=== PATIENT | female | born 1985 | race Caucasian/White ===

== ENCOUNTER → 2016-07-26 | Outpatient (CLI) | payer OTHER ==
[~2016-07-26] MED LIST: GLC/500 PO; LEVO50TA6 PO; METH0.2T39 PO; MTR600X PO; PRENTAB26 PO
[2016-07-26 12:15] LABS: BASO % 0.3 %; BASO ABS # 0.02 K/uL (0-0.2); COMPLETE YES; EOS % 0.7 %; HEMATOCRIT 36.7 % (37-47); IG% 0.3 %; LYMPH % 32.8 %; LYMPH ABS # 2.44 K/uL (1.2-3.4); MEAN CELL VOLUME 83.4 fL (80-100); MEAN CORPUSCULAR HEMOGLOBIN 30.2 pg (25-34); MEAN CORPUSCULAR HGB CONC 36.2 g/dl (32-36); MEAN PLATELET VOLUME 9.5 fL (7.4-10.4); MONO % 5.5 %; NEUT % 60.4 %; PLATELET COUNT 294 K/uL (130-400); WHITE BLOOD COUNT 7.43 K/uL (4.8-10.8)
== END | disposition home or self-care (01) ==
LOC: C.LAB 11:27
PROVIDERS: ATTEND Obstetrics & Gynecology
DX: Z01.812 Encounter for preprocedural laboratory examination (principal)

== ENCOUNTER 2016-07-31 07:45 | Day surgery (SDC) | payer OTHER ==
--- NOTE | 2016-07-26 16:29 | HISTORY & PHYSICAL EXAMINATION ---
DATE OF ADMISSION: 07/31/2016 NOTE: She is having surgery with me on July 31 in the main OR. CHIEF COMPLAINT: Missed . HISTORY OF PRESENT ILLNESS: The patient is a 31-year-old female 2, para 0, last menstrual period 04/14/2016 approximately 10 weeks 5 days who had an ultrasound today revealing a demise. No heartbeat was noted. Intrauterine was noted. PAST MEDICAL HISTORY: Positive for PCOS, hypothyroid and heterozygous for MTHFR mutation and endometriosis. PAST SURGICAL HISTORY: Positive for a laparoscopy in 2016 and dental surgery. ALLERGIES: No known allergies. MEDICATIONS: vitamins and Zofran and Levoxyl 50 mcg p.o. daily. The patient is A negative and she will need RhoGAM. REVIEW OF SYSTEMS: Negative. FAMILY HISTORY: Negative. SOCIAL HISTORY: Denies smoking, alcohol or drug use. FAMILY HISTORY: Noncontributory. PHYSICAL EXAMINATION: HEENT: Within normal limits. VITAL SIGNS: Blood pressure 110/66, her weight is 137 pounds. LUNGS: Clear to auscultation. COR: Regular rate and rhythm. ABDOMEN: Soft, nontender. NEUROLOGICALLY: Intact. PELVIC: Findings per the ultrasound. ASSESSMENT: Missed at 10 weeks 5 days. PLAN: D\T\E in the OR, RhoGAM to follow procedure.
[2016-07-30 09:22] VITALS: BMI 26.0
[~2016-07-31] VITALS: Ht 152.4 cm; Wt 60.9 kg
[~2016-07-31 07:45] MED LIST changes: -GLC/500 PO; +LACTATED RINGER'S 1000ML 1,000 ML IV SCH; -METH0.2T39 PO; -MTR600X PO
--- NOTE | 2016-07-31 07:55 | History & Physical Bridge Note ---
H&P Re-Evaluation Bridge Note: I have examined the patient, reviewed the History & Physical and in the interval since the performance of the History & Physical I have noted the following changes of clinical significance: No changes noted
[2016-07-31 08:03] VITALS: BP 126/81; PULSE 93; TEMP 36.4; O2SAT 100; Ht 152.4 cm; Wt 60.9 kg
[2016-07-31] MEDS ORDERED: GLC/500 PO (08:10)
[2016-07-31] MEDS ORDERED: NALOXONE HCL 0.4 MG/1 ML VIAL/CARP IV PRN (08:30)
[2016-07-31] MEDS ORDERED: FLUMAZENIL 0.1 MG/1 ML 10 ML VIAL IV PRN (08:30)
[2016-07-31] MEDS ORDERED: ONDANSETRON INJ 2 MG/ML 2 ML VIAL IV PRN ×2 (08:30→13:15)
[2016-07-31] MEDS ORDERED: LABETALOL HCL IV 5 MG/ML 20ML IV PRN (08:30)
[2016-07-31] MEDS ORDERED: PHENYLEPHRINE 100MCG/ML 5ML SYR IV PRN (08:30)
[2016-07-31] MEDS ORDERED: EpHEDrine SULFATE INJ 50 MG/ML AMP IV PRN (08:30)
[2016-07-31] MEDS ORDERED: MEPERIDINE HCL 25 MG/ML CARP IV PRN (08:30)
[2016-07-31] MEDS ORDERED: FENTANYL CITRATE INJ 50 MCG/1 ML 2 ML VIAL IV PRN (08:30)
[2016-07-31] MEDS ORDERED: ATROPINE SULFATE 0.1 MG/ML 5ML SYR IV PRN (08:30)
[2016-07-31] MEDS ORDERED: MIDAZOLAM HCL 1 MG/ML 2ML VIAL ONE ×2 (08:51→11:10)
[2016-07-31] MEDS ORDERED: FENTANYL CITRATE INJ 50 MCG/1 ML 2 ML VIAL ONE ×2 (08:51→11:10)
[2016-07-31] MEDS ORDERED: LIDOCAINE HCL 2% 2 ML VIAL (20MG/ML) ONE ×2 (08:54→11:09)
[2016-07-31] MEDS ORDERED: PROPOFOL IV EMULSION 10 MG/ML 20 ML VIAL IV ONE ×2 (08:54→11:09)
[2016-07-31] MEDS ORDERED: DEXAMETHASONE SOD INJ 4 MG/ML VIAL ONE (11:09)
[2016-07-31] MEDS ORDERED: ONDANSETRON INJ 2 MG/ML 2 ML VIAL ONE (11:09)
[2016-07-31] MEDS ORDERED: METHYLERGONOVINE MALEATE 0.2 MG/ML AMP ONE (11:52)
[2016-07-31] MEDS ORDERED: OXYTOCIN INJ 10 UNITS/ML VIAL ONE (13:03)
[2016-07-31] MEDS ORDERED: SODIUM CHLORIDE 0.9% 1000ML 1,000 ML IV SCH (13:12)
[2016-07-31] MEDS ORDERED: KETOROLAC TROMETHAMINE 30 MG/ML VIAL IV. PRN (13:15)
[2016-07-31] MEDS ORDERED: IBUPROFEN 600 MG TAB PO PRN (13:15)
--- NOTE | 2016-07-31 13:16 | [facility] Post Operative Brief Note ---
Immediate Operative Summary Operative Date Jul 31, 2016. Pre-Operative Diagnosis missed Post-Operative Diagnosis same Procedure(s) Performed D&E Surgeon Oksana Testing Tech Surgeon(s) none Estimated Blood Loss 150 ml. Findings products of conception Fluids (cc crystalloids) LR Specimens products of conception for genetic analysis Drains none Anesthesia LMA Complication(s) None Disposition Recovery Room / PACU
[2016-07-31] MEDS ORDERED: MTR600X PO (13:24)
--- NOTE | 2016-07-31 13:26 | Discharge Instructions ---
Discharge Instructions Date of Service Jul 31, 2016. Admission Reason for Admission: Missed Discharge Discharge Diagnosis / Problem: missed Discharge Goals Goal(s): Routine recovery after surgery Activity Recommendations Activity Limitations: as noted below Exercise/Sports Limitations: gradually increase as tolerated May Resume Sexual Activity: after follow-up appointment Shower/Bathe: no limitations Driving or Machine Use: resume 1 day after discharge . Instructions / Follow-Up Instructions / Follow-Up ACTIVITY RECOMMENDATIONS: * Avoid tampons, douching, hot tubs, pools, and intercourse until bleeding has stopped. * May shower as usual. * No strenuous activity for 24-48 hours. After 24-48 hours, you may do anything you feel like doing (driving and sports are okay). SPECIAL CARE INSTRUCTIONS: Special Diet: * Mild nausea may occur in the immediate post-operative period. * Take clear liquids such as tea, cola or bouillon until all nausea has subsided; you may then resume your normal diet. Special Care: * Light bleeding and vaginal spotting can last from a few days to 3-4 weeks. Call your doctor if bleeding becomes heavier than the heaviest part of your period. * Check your temperature twice a day for one week. If it goes above 100.4 degrees Fahrenheit (38.0 Celsius), notify your doctor. * Call your doctor's office for an appointment for 6 weeks after your surgery. FOLLOW-UP VISIT: Call your doctor's office for an appointment for 6 weeks after your surgery. Current Hospital Diet Patient's current hospital diet: Discharge Diet Recommended Diet: Regular Diet Fluid Restriction: None Procedures Procedures Performed: Dilation and Evacuation Pending Studies Studies pending at discharge: no Medical Emergencies . Who to Call and When: Medical Emergencies: If at any time you feel your situation is an emergency, please call 911 immediately. . Non-Emergent Contact Non-Emergency issues call your: Primary Care Provider . . "Provider Documentation" section prepared by Carlo Gandhi. VTE Core Measure Inpt VTE Proph given/why not?: Treatment not indicated
--- NOTE | 2016-07-31 13:49 | Anesthesiology Progress Note ---
Anesthesia Post Op Note Date & Time Jul 31, 2016 at 13:49 Vital Signs Pain Intensity: 0 Vital Signs Past 12 Hours Date Time Temp Pulse Resp B/P Pulse Ox O2 Delivery O2 Flow Rate FiO2 07/31/16 13:45 90 23 113/94 100 Room Air 07/31/16 13:35 96 24 124/87 100 Mask 10 07/31/16 13:25 101 19 124/77 100 Mask 10 07/31/16 13:19 36.9 113 16 134/68 100 Mask 10 07/31/16 08:03 36.4 93 16 126/81 100 Room Air Notes Mental Status: alert / awake / arousable, participated in evaluation Pt Amnestic to Procedure: Yes Nausea / Vomiting: adequately controlled Pain: adequately controlled Airway Patency, RR, SpO2: stable & adequate BP & HR: stable & adequate Hydration State: stable & adequate Anesthetic Complications: no major complications apparent
[2016-07-31 14:00] VITALS: BP 120/72; PULSE 83; TEMP 36.9; O2SAT 99
[2016-07-31] MEDS ORDERED: NURSING VERBAL MED ORDER ONE (14:15)
[2016-07-31 14:40] VITALS: BP 121/70; PULSE 77; O2SAT 100
[2016-07-31 15:15] VITALS: BP 112/62; PULSE 88; TEMP 37; O2SAT 100
--- NOTE | 2016-07-31 17:15 | OPERATIVE REPORT ---
DATE OF OPERATION: 07/31/2016 PREOPERATIVE DIAGNOSIS: Missed . POSTOPERATIVE DIAGNOSIS: Same. PROCEDURE: D\T\E. SURGEON: Dr. Gandhi. DISPLAY DEPARTMENT MANAGER: None. ANESTHESIA: LMA. FINDINGS: Products of conception. ESTIMATED BLOOD LOSS: 150 mL. COMPLICATIONS: None. CLINICAL HISTORY: The patient is a 31-year-old female para 0-0-1-0 at approximately 10+ weeks admitted for D\T\E for missed . The patient was given informed consent. She was identified prior to the start of the procedure. Timeout was called. No antibiotics were given. DESCRIPTION OF PROCEDURE: After satisfactory general LMA anesthesia, the patient was prepped and draped in usual sterile fashion. Red rubber catheter was used to empty the bladder. Exam under anesthesia revealed the uterus to be approximately 10-12 weeks size. Weighted speculum was then placed in the posterior vault of the vagina. A single tooth tenaculum was then placed on the anterior lip of the cervix. Next, the sound was used to get her uterine sound, which was approximately 10 cm. Uterus was then dilated and then a #10 curved curet was then introduced suctioning out products of conception. Brisk amount of bleeding was noted prior to this and finishing the procedure. A sharp endometrial curet was then used curetting out products of conception. The bleeding had slowed down with the anesthesia giving 20 units of Pitocin in the IV drip and then Methergine 0.2 mg IM. At the end of the procedure no active bleeding was noted. All remaining sponge, needle and instrument counts were found to be correct. The instruments were then removed from the vagina. The patient was then placed supine on a stretcher. EBL 150 mL. The products of conception were submitted for genetic analysis. I attest to the content of the Intraoperative Record and any orders documented therein. Any exceptio ns are noted below.
[2016-08-12] MEDS ORDERED: METH0.2T39 PO (17:44)
== END 2016-07-31 15:20 | disposition home or self-care (01) ==
LOC: C.ACU 07:45
PROVIDERS: ATTEND Obstetrics & Gynecology
DX: O02.1 Missed abortion (principal)

== ENCOUNTER 2016-08-12 16:20 | Day surgery (SDC) | payer OTHER ==
[~2016-08-12] VITALS: Ht 182.9 cm; Wt 60.9 kg
[~2016-08-12 16:20] MED LIST changes: +GLC/500 PO; -LACTATED RINGER'S 1000ML 1,000 ML IV SCH; +MTR600X PO
[2016-08-12] MEDS ORDERED: CARBOPROST TROMETHAMINE 250 MCG/ML AMP ONE (16:25)
[2016-08-12] MEDS ORDERED: METHYLERGONOVINE MALEATE 0.2 MG/ML AMP ONE (16:25)
[2016-08-12] MEDS ORDERED: PROPOFOL IV EMULSION 10 MG/ML 20 ML VIAL IV ONE (16:27)
[2016-08-12] MEDS ORDERED: FENTANYL CITRATE INJ 50 MCG/1 ML 2 ML VIAL ONE ×2 (16:27→17:54)
[2016-08-12] MEDS ORDERED: LIDOCAINE HCL 2% 2 ML VIAL (20MG/ML) ONE (16:27)
[2016-08-12] MEDS ORDERED: MIDAZOLAM HCL 1 MG/ML 2ML VIAL ONE (16:27)
--- NOTE | 2016-08-12 16:28 | HISTORY & PHYSICAL EXAMINATION ---
DATE OF ADMISSION: 08/12/2016 CHIEF COMPLAINT: Vaginal bleeding. HISTORY OF PRESENT ILLNESS: The patient is a 31-year-old white female, para 0-0-2-0, status post D\T\E on 07/31/2016 for missed AB, that was approximately 10 weeks and 5 days. She had a D\T\E, which revealed possible mole, however there was a possibility of hydatidiform mole and the studies for this are pending. The patient presents to the office today with bleeding. She was seen and the vagina was filled with clots. Ultrasound revealed the endometrial lining was thickened with blood flow, consistent with retained products of conception. PAST MEDICAL HISTORY: Positive for endometriosis. She is heterozygous for MTHFR mutation, hypothyroid, PCOS syndrome. ALLERGIES: No known allergies. MEDICATIONS: None other than vitamins and levothyroxine 50 mcg daily. REVIEW OF SYSTEMS: Positive for menstrual bleeding currently. PHYSICAL EXAMINATION: HEENT: Within normal limits. LUNGS: Clear to auscultation. COR: Regular rate and rhythm. ABDOMEN: Soft. PELVIC: Reveals the vagina to be full of blood. The uterus is nontender. ASSESSMENT: Retained products of conception, possible molar . PLAN: We will send to the hospital for possible D\T\C tonight for retained products. LEONIE
[2016-08-12] MEDS ORDERED: MISOPROSTOL 200 MCG TAB PV ONE (16:30)
[2016-08-12] MEDS ORDERED: LACTATED RINGER'S 1000ML 1,000 ML IV PRN (16:49)
[2016-08-12 16:50] VITALS: BP 146/90; PULSE 120; TEMP 36.6; O2SAT 100; Ht 182.9 cm; Wt 60.9 kg
[2016-08-12 16:50] LABS: BASO % 0.3 %; BASO ABS # 0.03 K/uL (0-0.2); COMPLETE YES; EOS % 1.7 %; HEMATOCRIT 34.1 % (37-47); IG% 0.3 %; LYMPH % 32.5 %; LYMPH ABS # 2.86 K/uL (1.2-3.4); MEAN CELL VOLUME 85.3 fL (80-100); MEAN CORPUSCULAR HEMOGLOBIN 29.3 pg (25-34); MEAN CORPUSCULAR HGB CONC 34.3 g/dl (32-36); MEAN PLATELET VOLUME 8.2 fL (7.4-10.4); MONO % 3.3 %; NEUT % 61.9 %; PLATELET COUNT 362 K/uL (130-400); WHITE BLOOD COUNT 8.81 K/uL (4.8-10.8)
[2016-08-12] MEDS ORDERED: FENTANYL CITRATE INJ 50 MCG/1 ML 2 ML VIAL IV PRN (17:00)
[2016-08-12] MEDS ORDERED: ONDANSETRON INJ 2 MG/ML 2 ML VIAL IV PRN ×2 (17:00→17:45)
[2016-08-12] MEDS ORDERED: ONDANSETRON INJ 2 MG/ML 2 ML VIAL ONE (17:12)
[2016-08-12] MEDS ORDERED: DEXAMETHASONE SOD INJ 4 MG/ML VIAL ONE (17:12)
[2016-08-12 17:26] LABS: INR 0.9 (0.9-1.1); PARTIAL THROMBOPLASTIN RATIO 1.1; PROTHROMBIN TIME (PATIENT) 10.1 SECONDS (9.0-12.0)
[2016-08-12] MEDS ORDERED: SODIUM CHLORIDE 0.9% 1000ML 1,000 ML IV SCH (17:41)
--- NOTE | 2016-08-12 17:42 | [facility] Post Operative Brief Note ---
Immediate Operative Summary Operative Date Aug 12, 2016. Pre-Operative Diagnosis Retained products of conception, possible molar Post-Operative Diagnosis Same as preoperative diagnosis Procedure(s) Performed Examination Under Anesthesia, Dilation and Evacuation of Uterus with Ultrasound Guidance Surgeon Dr. Rivera Inflatable Buildings Laminator Surgeon(s) none Estimated Blood Loss 50ml Findings dictated Specimens a. retained product of conception Complication(s) None Disposition Recovery Room / PACU
[2016-08-12] MEDS ORDERED: METH0.2T39 PO (17:44)
[2016-08-12] MEDS ORDERED: IBUPROFEN 600 MG TAB PO PRN (17:45)
[2016-08-12] MEDS ORDERED: METOCLOPRAMIDE HCL INJ 5 MG/ML 2 ML VIAL IV PRN (17:45)
[2016-08-12] MEDS ORDERED: KETOROLAC TROMETHAMINE 30 MG/ML VIAL IV. PRN (17:45)
--- NOTE | 2016-08-12 17:45 | Discharge Instructions ---
Discharge Instructions Date of Service Aug 12, 2016. Admission Reason for Admission: Retained Procducts of Conception Discharge Discharge Diagnosis / Problem: incomplete post D&E Discharge Goals Goal(s): Routine recovery after surgery Activity Recommendations Activity Limitations: as noted below ACTIVITY RECOMMENDATIONS: * Avoid tampons, douching, hot tubs, pools, and intercourse until bleeding has stopped. * May shower as usual. * No strenuous activity for 24-48 hours. After 24-48 hours, you may do anything you feel like doing (driving and sports are okay). SPECIAL CARE INSTRUCTIONS: Special Diet: * Mild nausea may occur in the immediate post-operative period. * Take clear liquids such as tea, cola or bouillon until all nausea has subsided; you may then resume your normal diet. Special Care: * Light bleeding and vaginal spotting can last from a few days to 3-4 weeks. Call your doctor if bleeding becomes heavier than the heaviest part of your period. * Check your temperature twice a day for one week. If it goes above 100.4 degrees Fahrenheit (38.0 Celsius), notify your doctor. * Call your doctor's office for an appointment for 6 weeks after your surgery. FOLLOW-UP VISIT: Call your doctor's office for an appointment for 6 weeks after your surgery. . Current Hospital Diet Patient's current hospital diet: Discharge Diet Recommended Diet: Regular Diet Procedures Procedures Performed: Examination Under Anesthesia, Dilation and Evacuation of Uterus with Ultrasound Guidance Pending Studies Studies pending at discharge: no Medical Emergencies . Who to Call and When: Medical Emergencies: If at any time you feel your situation is an emergency, please call 911 immediately. . Non-Emergent Contact Non-Emergency issues call your: Specialist . . "Provider Documentation" section prepared by Nii Rivera. VTE Core Measure Inpt VTE Proph given/why not?: Treatment not indicated
--- NOTE | 2016-08-12 17:51 | DIAGNOSTIC IMAGING REPORT ---
Study: Pelvic ultrasound INDICATION: Retained products of conception FINDINGS: Ultrasound guidance was provided for an intraoperative procedure. IMPRESSION:. Ultrasound guidance for pelvic operative procedure Electronically signed by: Shahriar Dubon M.D. 08/12/2016 5:50 PM Dictated Date/Time: 08/12/2016 5:49 PM
[2016-08-12] MEDS ORDERED: KETOROLAC TROMETHAMINE 30 MG/ML VIAL ONE (17:52)
--- NOTE | 2016-08-12 17:59 | HISTORY & PHYSICAL EXAMINATION ---
DATE OF ADMISSION: 08/12/2016 HISTORY OF PRESENT ILLNESS: The patient is a 31-year-old , last menstrual period 04/14/2016, who underwent a D\T\C for incomplete AB on 07/31/2016. Surgery was unremarkable. She was seen today in the office by Dr. Gandhi for follow up evaluation. She was found to have heavy bleeding with large amount of blood in the vagina. Review of patient's pathology report showed possible molar from the tissue obtained from the specimen obtained during D\T\C. The patient is sent to the hospital for another D\T\E. On arrival to the hospital, she had no shortness of breath, no chills, no fever. She has been hemodynamically stable. PAST MEDICAL HISTORY: 1. PCOS. 2. Hypothyroidism. 3. Heterozygous MTHFR. 4. Endometriosis. PAST SURGICAL HISTORY: 1. Laparoscopy in 2015. 2. Dental surgery. 3. D\T\E with suction on 07/31/2016. ALLERGIES: No known drug allergies. MEDICATIONS: vitamins, Zofran and levothyroxine. SOCIAL HISTORY: The patient denies tobacco, drug or alcohol use. FAMILY HISTORY: Noncontributory. REVIEW OF SYSTEMS: Negative except as dictated in HPI. PHYSICAL EXAMINATION: GENERAL: Well-developed, well-nourished white female in no acute distress. HEART: S1, S2, regular rhythm and rate. LUNGS: Clear to auscultation bilaterally. ABDOMEN: Nontender, nondistended. PELVIC: Moderate amount of blood in the vagina. As per ultrasound there is retained products of conception with thickened endometrium. Uterus is about 10 weeks' size on manual examination. ASSESSMENT AND PLAN: Missed at 10+ weeks, dilatation and curettage done on 07/31/2016. The patient continues to bleed. Results from dilatation and curettage showed possible molar . Plan is to take patient back to the operating room and do a repeat dilation and evacuation of uterus on ultrasound guidance. I have discussed with patient the risks of infection, bleeding, and damage to the uterus as well as adjacent structures. I have also informed patient on increased risk of much more bleeding, heavier bleeding and there is always a possibility of abdominal surgery such as hysterectomy in order to stabilize. The patient has agreed and consent is signed. We will proceed with surgery.
--- NOTE | 2016-08-12 18:29 | Anesthesiology Progress Note ---
Anesthesia Post Op Note Date & Time Aug 12, 2016 at 18:29 Vital Signs Pain Intensity: 2 Vital Signs Past 12 Hours Date Time Temp Pulse Resp B/P Pulse Ox O2 Delivery O2 Flow Rate FiO2 08/12/16 18:25 36.9 78 19 122/73 100 Room Air 08/12/16 18:15 84 24 114/87 97 Room Air 08/12/16 18:05 96 20 117/73 100 Mask 10 08/12/16 17:55 92 20 115/78 100 Mask 10 08/12/16 17:45 37.0 101 19 120/75 100 Mask 10 08/12/16 16:50 36.6 120 17 146/90 100 Room Air 08/12/16 16:50 36.6 120 17 146/90 Room Air Notes Mental Status: alert / awake / arousable, participated in evaluation Pt Amnestic to Procedure: Yes Nausea / Vomiting: adequately controlled Pain: adequately controlled Airway Patency, RR, SpO2: stable & adequate BP & HR: stable & adequate Hydration State: stable & adequate Anesthetic Complications: no major complications apparent Pt doing well.
[2016-08-12 18:30] VITALS: BP 111/64; PULSE 89; TEMP 36.5; O2SAT 96
--- NOTE | 2016-08-13 02:55 | OPERATIVE REPORT ---
DATE OF OPERATION: 08/12/2016 INDICATION FOR PROCEDURE: This is a 31-year-old who underwent a D\T\E on 08/02/2016 for missed . She presented today in the office for postoperative evaluation, upon which it was found she was having heavy bleeding. An ultrasound performed showed that she still had retained products of conception. The patient was sent to the operating room for repeat D\T\E. PREOPERATIVE DIAGNOSIS: Retained products of conception after dilatation and evacuation done on 07/31/2016. POSTOPERATIVE DIAGNOSIS: Same. PROCEDURES: 1. Examination under anesthesia. 2. Dilation and evacuation of uterus under ultrasound guidance. SURGEON: Nii Rivera MD TURN OUT WORKER: None. ESTIMATED BLOOD LOSS: 50 mL. FINDINGS: This normal female escutcheon. Cervix was dilated. Uterus is about 10 weeks' size. Moderate products of conception evacuated under ultrasound guidance. SPECIMEN: Retained products of conception. COMPLICATIONS: None. DRAINS: None. DISPOSITION: Stable to recovery room. DESCRIPTION OF PROCEDURE: The patient was taken to the operating room where she was prepped and draped in normal sterile fashion in dorsal lithotomy position. Bladder was catheterized and 50 mL of clear urine was obtained. A weighted speculum was placed in the vagina. Parry retractor was placed to retract the anterior part of the vagina. Single-tooth tenaculum was used to grab the cervix. Cervix was dilated to a size 30. A size 10 curved suction was introduced into the uterine cavity under direct ultrasound visualization. Suction was performed, it was evident on ultrasound that there were no more products in the uterus. At this time, the suction was removed and a sharp curette used to curette the uterus in all 4 quadrants till a gritty texture was obtained. The sharp curette was removed and suction was reintroduced. There was very little products at this time. All instruments were removed from the uterus and accounted for x2 including retractors, sponges and single-tooth tenaculum. The patient is doing well and sent to recovery in stable condition. I attest to the content of the Intraoperative Record and any orders documented therein. Any exceptio ns are noted below.
== END 2016-08-12 19:30 | disposition home or self-care (01) ==
LOC: C.ACU 16:20
PROVIDERS: ATTEND Obstetrics & Gynecology
DX: O73.1 Retained portions of placenta and membranes, without hemorrhage (principal); N80.0 Endometriosis of uterus

== ENCOUNTER → 2016-11-21 | Outpatient (CLI) | payer OTHER ==
[~2016-11-21] MED LIST changes: +METH0.2T39 PO
== END | disposition home or self-care (01) ==
LOC: C.LAB1850 17:03
PROVIDERS: ATTEND Obstetrics & Gynecology
DX: O08.89 Other complications following an ectopic and molar pregnancy (principal); Z3A.00 Weeks of gestation of pregnancy not specified

== ENCOUNTER → 2016-11-28 | Outpatient (CLI) | payer OTHER | END | disposition home or self-care (01) | LOC: C.LAB1850 08:14 | PROVIDERS: ATTEND Obstetrics & Gynecology | DX: O08.89 Other complications following an ectopic and molar pregnancy (principal) ==

== ENCOUNTER → 2016-12-05 | Outpatient (CLI) | payer OTHER | END | disposition home or self-care (01) | LOC: C.LAB1850 08:08 | PROVIDERS: ATTEND Obstetrics & Gynecology | DX: O08.89 Other complications following an ectopic and molar pregnancy (principal) ==

== ENCOUNTER → 2017-06-06 | Outpatient (CLI) | payer OTHER ==
[2017-06-06 09:30] LABS: BASO % 0.6 %; BASO ABS # 0.03 K/uL (0-0.2); EOS % 2.3 %; EOS ABS # 0.12 K/uL (0-0.5); HEMATOCRIT 42.2 % (37-47); HEMOGLOBIN 14.4 g/dL (12.0-16.0); IG# 0.01 K/uL (0.00-0.02); LYMPH % 45.1 %; LYMPH ABS # 2.31 K/uL (1.2-3.4); MEAN CELL VOLUME 87.6 fL (80-100); MEAN CORPUSCULAR HEMOGLOBIN 29.9 pg (25-34); MEAN CORPUSCULAR HGB CONC 34.1 g/dl (32-36); MEAN PLATELET VOLUME 9.3 fL (7.4-10.4); MONO % 6.8 %; MONO ABS # 0.35 K/uL (0.11-0.59); PLATELET COUNT 275 K/uL (130-400); RED CELL DISTRIBUTION WIDTH CV 12.6 % (11.5-14.5); RED CELL DISTRIBUTION WIDTH SD 40.7 fL (36.4-46.3); WHITE BLOOD COUNT 5.12 K/uL (4.8-10.8)
[2017-06-06 10:01] LABS: ALBUMIN 4.1 gm/dl (3.4-5.0); BLOOD UREA NITROGEN 7 mg/dl (7-18); CALCIUM 8.7 mg/dl (8.5-10.1); CARBON DIOXIDE 27 mmol/L (21-32); CREATININE 0.79 mg/dl (0.60-1.20); GLUCOSE 88 mg/dl (70-99); POTASSIUM 3.8 mmol/L (3.5-5.1); SODIUM 136 mmol/L (136-145)
[2017-06-06 10:07] LABS: ALKALINE PHOSPHATASE 55 U/L (45-117); ALT/SGPT 15 U/L (12-78); AST/SGOT 15 U/L (15-37); CHOLESTEROL 202 mg/dl (0-200); LDL CHOLESTEROL CALCULATED 103 mg/dl; TOTAL PROTEIN 7.9 gm/dl (6.4-8.2)
== END | disposition home or self-care (01) ==
LOC: C.LAB1850 08:43
PROVIDERS: ATTEND Physician Assistant
DX: Z13.220 Encounter for screening for lipoid disorders (principal); E05.90 Thyrotoxicosis, unspecified without thyrotoxic crisis or storm

== ENCOUNTER → 2017-07-21 | Outpatient (CLI) | payer OTHER ==
[2017-07-21 16:31] LABS: BASO % 0.3 %; BASO ABS # 0.02 K/uL (0-0.2); EOS % 0.6 %; EOS ABS # 0.05 K/uL (0-0.5); HEMATOCRIT 42.6 % (37-47); HEMOGLOBIN 14.4 g/dL (12.0-16.0); IG# 0.01 K/uL (0.00-0.02); LYMPH % 28.9 %; LYMPH ABS # 2.27 K/uL (1.2-3.4); MEAN CELL VOLUME 87.7 fL (80-100); MEAN CORPUSCULAR HEMOGLOBIN 29.6 pg (25-34); MEAN CORPUSCULAR HGB CONC 33.8 g/dl (32-36); MEAN PLATELET VOLUME 9.5 fL (7.4-10.4); MONO % 4.3 %; MONO ABS # 0.34 K/uL (0.11-0.59); NEUT % 65.8 %; NEUT ABS # 5.17 K/uL (1.4-6.5); PLATELET COUNT 290 K/uL (130-400); RED CELL DISTRIBUTION WIDTH SD 38.2 fL (36.4-46.3); WHITE BLOOD COUNT 7.86 K/uL (4.8-10.8)
== END | disposition home or self-care (01) ==
LOC: C.LAB1850 15:14
PROVIDERS: ATTEND Obstetrics & Gynecology
DX: R30.0 Dysuria (principal); E03.9 Hypothyroidism, unspecified; R10.31 Right lower quadrant pain

== ENCOUNTER → 2017-07-31 | Outpatient (CLI) | payer OTHER ==
[2017-07-31 09:12] LABS: HEMOGLOBIN A1C 5.2 % (4.5-5.6)
[2017-07-31 09:16] LABS: ALBUMIN 3.8 gm/dl (3.4-5.0); ALT/SGPT 14 U/L (12-78); BLOOD UREA NITROGEN 12 mg/dl (7-18); CALCIUM 9.1 mg/dl (8.5-10.1); CARBON DIOXIDE 26 mmol/L (21-32); CREATININE 0.77 mg/dl (0.60-1.20); GLUCOSE 84 mg/dl (70-99); POTASSIUM 3.6 mmol/L (3.5-5.1); SODIUM 139 mmol/L (136-145)
[2017-07-31 09:18] LABS: ALKALINE PHOSPHATASE 53 U/L (45-117); AST/SGOT 11 U/L (15-37); TOTAL PROTEIN 7.5 gm/dl (6.4-8.2)
[2017-07-31 09:26] LABS: CORTISOL AM*DRAW BETWEEN 7-9AM 17.51 mcg/dl (4.30-22.40)
== END | disposition home or self-care (01) ==
LOC: C.LAB1850 08:09
PROVIDERS: ATTEND Internal Medicine
DX: R42 Dizziness and giddiness (principal); I95.1 Orthostatic hypotension; R63.8 Other symptoms and signs concerning food and fluid intake

== ENCOUNTER → 2017-08-14 | Outpatient (CLI) | payer OTHER | END | disposition home or self-care (01) | LOC: C.LAB1850 16:40 | PROVIDERS: ATTEND Obstetrics & Gynecology | DX: N83.299 Other ovarian cyst, unspecified side (principal) ==

== ENCOUNTER 2017-09-15 05:42 | Observation (INO) | payer OTHER ==
[2017-09-05 13:05] VITALS: BMI 25.0
--- NOTE | 2017-09-05 13:45 | PAT Medication Instructions ---
Service Date Sep 05, 2017. Current Home Medication List Ibuprofen (Advil), 400 MG PO PRN Levothyroxine Sodium (Levothyroxine Sodium), 1 TAB PO QAM Metformin Hcl (Glucophage), 500 MG PO QPM Multivit/Min/Iron/Fol Ac/Pren ( Vitamin), 1 TAB PO QPM [Active B12], 1 TAB PO QPM Medication Instructions For Your Scheduled Surgery -Check with your surgeon for: Ibuprofen (Advil), 400 MG PO PRN - Take the following medications the morning of surgery with a sip of water: Levothyroxine Sodium (Levothyroxine Sodium), 1 TAB PO QAM - Take the following medications as scheduled the night before surgery: Metformin Hcl (Glucophage), 500 MG PO QPM Multivit/Min/Iron/Fol Ac/Pren ( Vitamin), 1 TAB PO QPM [Active B12], 1 TAB PO QPM If you have any questions please call us at [phone] or [phone] or [phone]
[~2017-09-15] VITALS: Ht 153.7 cm; Wt 59.3 kg
[~2017-09-15 05:42] MED LIST changes: +ACTIVE PO; +IBUP-1050 PO; -METH0.2T39 PO; -MTR600X PO
[2017-09-15] MEDS ORDERED: LACTATED RINGER'S 1000ML 1,000 ML IV SCH (06:00)
[2017-09-15 06:09] VITALS: BP 120/79; PULSE 88; TEMP 36.5; O2SAT 100; Ht 153.7 cm; Wt 59.3 kg
[2017-09-15] MEDS ORDERED: FENTANYL CITRATE INJ 50 MCG/1 ML 2 ML VIAL ONE ×2 (07:08→08:04)
[2017-09-15] MEDS ORDERED: MIDAZOLAM HCL 1 MG/ML 2ML VIAL ONE (07:08)
--- NOTE | 2017-09-15 07:10 | History & Physical Bridge Note ---
H&P Re-Evaluation Bridge Note: I have examined the patient, reviewed the History & Physical and in the interval since the performance of the History & Physical I have noted the following changes of clinical significance: Left salpingoophorectomy. No changes noted
[2017-09-15] MEDS ORDERED: BUPIVACAINE 0.5 % 5 MG/1 ML MPF 30ML VIAL ONE (07:36)
[2017-09-15] MEDS ORDERED: ROCURONIUM BROMIDE 10 MG/ML 5 ML VIAL ONE (08:14)
[2017-09-15] MEDS ORDERED: ONDANSETRON INJ 2 MG/ML 2 ML VIAL ONE (08:14)
[2017-09-15] MEDS ORDERED: DEXAMETHASONE SOD INJ 4 MG/ML VIAL ONE (08:14)
[2017-09-15] MEDS ORDERED: NEOSTIGMINE METHYLSULFATE 5 MG/5 ML SYR ONE (08:14)
[2017-09-15] MEDS ORDERED: LARYING-O-JET KIT (LTA) ONE (08:14)
[2017-09-15] MEDS ORDERED: PROPOFOL IV EMULSION 10 MG/ML 20 ML VIAL ONE (08:14)
[2017-09-15] MEDS ORDERED: GLYCOPYRROLATE INJ 0.2 MG/ML VIAL ONE (08:14)
[2017-09-15] MEDS ORDERED: KETOROLAC TROMETHAMINE 30 MG/ML VIAL ONE (08:14)
[2017-09-15] MEDS ORDERED: LIDOCAINE HCL 2% 2 ML VIAL (20MG/ML) ONE (08:14)
[2017-09-15] MEDS ORDERED: EpHEDrine SULFATE INJ 50 MG/ML AMP IV PRN (08:30)
[2017-09-15] MEDS ORDERED: ATROPINE SULFATE 0.1 MG/ML 5ML SYR IV PRN (08:30)
[2017-09-15] MEDS ORDERED: FENTANYL CITRATE INJ 50 MCG/1 ML 2 ML VIAL IV PRN (08:30)
[2017-09-15] MEDS ORDERED: ONDANSETRON INJ 2 MG/ML 2 ML VIAL IV PRN ×2 (08:30→09:15)
--- NOTE | 2017-09-15 09:05 | [facility] Post Operative Brief Note ---
Immediate Operative Summary Operative Date Sep 15, 2017. Pre-Operative Diagnosis Left Ovarian Mass Post-Operative Diagnosis Left Ovarian Mass and endometriosis Procedure(s) Performed Robotic Assisted Laparoscopic Left Salpingo-Oophorectomy, Resection of endometriosis implants, pelvic washings Surgeon Dr. Julia Ardon Four Roll Calender Operator Surgeon(s) None Estimated Blood Loss 5 ml Findings See Below 3 endometriosis implants, left ovary with cystic-like appearance Specimens Cytology #1 Pelvic washings Specimens: A: Peritoneal biopsy B: Left Fallopion tube and ovary Drains rice, clear yellow, removed at end of case Anesthesia Type General Complication(s) none Disposition Accompanied Pt To Recover: no Disposition: Recovery Room / PACU
[2017-09-15] MEDS ORDERED: OXYC-57 PO (09:09)
--- NOTE | 2017-09-15 09:10 | Discharge Instructions ---
Discharge Instructions Date of Service Sep 15, 2017. Visit Reason for Visit: Complex Ovarian Cyst Discharge Discharge Diagnosis / Problem: adnexal mass, endometriosis Discharge Goals Goal(s): Diagnostic testing, Therapeutic intervention Activity Recommendations Activity Limitations: per Instructions/Follow-up section Anesthesia . Post Anesthesia Instructions: If you have had General Anesthesia or IV Sedation: * Do not drive today. * Resume driving when surgeon permits. * Do not make important decisions or sign legal documents today. * Call surgeon for: 1. Temperature elevations greater than 101 degrees F. 2. Uncontrollable pain. 3. Excessive bleeding. 4. Persistent nausea and vomiting. 5. Medication intolerance (nausea, vomiting or rash). * For nausea and vomiting use only clear liquids such as: tea, soda, bouillon until nausea subsides, then gradually increase diet as tolerated. * If you have any concerns or questions, call your surgeon's office. If physician is unavailable and it is an emergency, call 911 or go to the nearest emergency room. . Instructions / Follow-Up Instructions / Follow-Up ACTIVITY RECOMMENDATIONS: * Rest the first 2-3 days. You should be back to your normal activity levels by day 3. * No heavy lifting for 2 weeks. * No intercourse, tampons or douching for 1-2 weeks. * You may shower the next day. * Do not drive anytime that you are taking narcotic pain medicines. RETURN TO SCHOOL/WORK: * May return to school or work after 2-3 days. DIET: Nausea may occur in the immediate post-operative period. If so, take clear liquids such as tea, bouillon, apple juice until all nausea has subsided, then resume usual diet. MEDICATIONS: Resume previous medications unless instructed otherwise by your surgeon. Ibuprofen 200mg 2-3 tablets every 4-6 hours as needed -- OR -- Aleve 2 tablets every 8-12 hours as needed for post-operative discomfort Medications are over the counter. Tylenol may be used if above medications are contraindicated or not preferred. Medication should be taken with food or milk. Do not take on an empty stomach. SPECIAL CARE INSTRUCTIONS: * Check temperature twice daily for one week. report any elevation over 101 degrees. * You may experience some vagina spotting and/or bleeding. This is normal for 1 -2 weeks and should not be heavier than a normal period. If it is unusual in amount, call your physician. * Post-operative discomfort may consist of a sore throat, a "bloated" feeling and pain in the shoulders. these are normal symptoms, which usually only last for 2-3 days. * Remove band-aids tomorrow and shower. There is no need to replace band-aids unless there is drainage or discomfort. FOLLOW UP VISIT: Call your doctor's office for a post-operative 2 week visit if not already scheduled. Diet Recommendations Recommended Home Diet: resume previous diet Procedures Procedures Performed: Robotic Assisted Laparoscopic Left Salpingo-Oophorectomy, Resection of endometriosis implants, pelvic washings Pending Studies Studies pending at discharge: yes List of pending studies: pathology Medical Emergencies . Who to Call and When: Medical Emergencies: If at any time you feel your situation is an emergency, please call 911 immediately. . Non-Emergent Contact Non-Emergency issues call your: Primary Care Provider, Basket Patcher . . "Provider Documentation" section prepared by Julia Ardon. . [place] Drug Monitoring Program Search Results: patient reviewed within database
[2017-09-15] MEDS ORDERED: PROMETHAZINE HCL INJ 12.5 MG in SODIUM CHLORIDE 0.9% 50ML 50 ML IV PRN (09:15)
[2017-09-15] MEDS ORDERED: IBUPROFEN 600 MG TAB PO PRN (09:15)
[2017-09-15] MEDS ORDERED: OXYCODONE/ACETAMINOPHEN 5-325 TAB PO PRN ×2 (09:15)
--- NOTE | 2017-09-15 10:17 | OPERATIVE REPORT ---
DATE OF OPERATION: 09/15/2017 PREOPERATIVE DIAGNOSIS: Left ovarian mass. POSTOPERATIVE DIAGNOSES: Left ovarian mass and endometriosis. PROCEDURE PERFORMED: Robotic-assisted laparoscopic left salpingo-oophorectomy with resection of endometriosis implants and pelvic washings. SURGEON: Julia Ardon DO K[employer] DIETARY SERVICE MANAGER: None. ESTIMATED BLOOD LOSS: 5 mL. FINDINGS: Normal-appearing uterus and right ovary and fallopian tube. Left ovary with cystic-like appearance and 3-4 endometriosis implants noted. SPECIMENS: 1. Pelvic washings to cytology. 2. Peritoneal biopsies. 3. Left fallopian tube and ovary. DRAINS: Arguello, clear yellow, removed at the end of the case. ANESTHESIA: General. COMPLICATIONS: None. DISPOSITION: Stable and good to recovery room. INDICATIONS FOR PROCEDURE: The patient is a 32-year-old G2, P0-0-2-0, who had undergone ultrasound for right lower quadrant pain. This ultrasound showed a normal-appearing uterus with endometrial thickness of 6.3 mm and a normal-appearing right ovary. The left ovary showed a complex area measuring 4.1 x 3.8 x 2.9 cm, within this complex area was a solid internal area with a volume of 4.2 mL. No free fluid noted in the pelvis. Ovarian tumor markers were normal. Due to abnormal appearance of ovarian cyst on ultrasound with a solid component, she elected to proceed with oophorectomy. DESCRIPTION OF PROCEDURE: The patient was seen in preoperative holding area where risks, benefits, and alternatives to surgery were reviewed. All questions were answered. She had previously signed informed consent in the office under no duress. She was taken to the operating room where general anesthesia was administered and prepared and draped in the usual sterile fashion in the dorsal lithotomy position with feet in Yellofin stirrups. A Arguello catheter was placed. A weighted speculum was placed in the vagina. The cervix was visualized, its anterior lip was grasped with a single tooth tenaculum. The acorn manipulator was placed. Gloves were changed. Attention was then turned to the abdomen where a supraumbilical incision was made and the open Foster technique was used to insert the trocar. The camera was inserted and pictures were taken. Additional port sites were placed on bilateral sides for the robot arm 1 and 2. The robot was then docked. Prior to docking the robot, the pelvic washings were performed. The robot was docked. The left salpingo-oophorectomy was performed by grasping the left fallopian tube. The left infundibulopelvic ligament was coagulated multiple times and transected. The uteroovarian ligament was coagulated and transected and the fallopian tube was coagulated and transected from the uterus. All edges were hemostatic. The left ureter was visualized prior to and after removal of the ovary and tube. The right ureter was also visualized. Three small endometrial implants in the posterior cul-de-sac were grasped with a Doris dissector and removed with cold scissors. These were then removed from the abdomen and sent to pathology. Next, excellent hemostasis was observed and bilateral ureters were peristalsing well. The robot was undocked. A 5-mm scope was placed in the left trocar. An EndoCatch bag was inserted through the umbilical trocar and the ovary and tube were placed in the bag. This was then brought up through the umbilical incision. All trocars were removed. Gas was desufflated from the abdomen. Hemostasis was obtained using a Bovie cautery at the incision sites. The fascia was reapproximated at the supraumbilical site using 0 Vicryl. The skin incisions were reapproximated using 4-0 Vicryl in a subcuticular stitch. Dermabond glue was applied. All instruments were removed from the vagina as well as the Arguello catheter. The patient tolerated the procedure well and was taken to the recovery area in stable and good condition. I attest to the content of the Intraoperative Record and any orders documented therein. Any exception s are noted below.
--- NOTE | 2017-09-15 10:19 | Anesthesiology Progress Note ---
Anesthesia Post Op Note Date & Time Sep 15, 2017 at 10:19 Vital Signs Pain Intensity: 1 Vital Signs Past 12 Hours Date Time Temp Pulse Resp B/P (MAP) Pulse Ox O2 Delivery O2 Flow Rate FiO2 09/15/17 10:10 36.3 66 14 116/68 100 Room Air 09/15/17 10:00 69 17 112/73 100 Room Air 09/15/17 09:50 71 12 122/69 100 Room Air 09/15/17 09:40 83 16 124/71 99 Oxymask 10 09/15/17 09:30 65 14 118/74 100 Oxymask 10 09/15/17 09:20 93 18 130/64 100 Oxymask 10 09/15/17 09:14 36.0 108 18 134/72 100 Oxymask 10 09/15/17 06:09 36.5 88 18 120/79 (93) 100 Room Air Notes Mental Status: alert / awake / arousable, participated in evaluation Pt Amnestic to Procedure: Yes Nausea / Vomiting: adequately controlled Pain: adequately controlled Airway Patency, RR, SpO2: stable & adequate BP & HR: stable & adequate Hydration State: stable & adequate Anesthetic Complications: no major complications apparent
[2017-09-15 10:25] VITALS: BP 121/74; PULSE 78; TEMP 36.5; O2SAT 100
[2017-09-15 11:28] VITALS: BP 121/74; PULSE 78; TEMP 36.5
[2017-09-15 11:30] VITALS: BP 107/69; PULSE 70; TEMP 36.8; O2SAT 100
[2017-09-15 12:23] VITALS: BP 121/74; PULSE 78; TEMP 36.5; O2SAT 100
[2017-09-15] MEDS ORDERED: IV FLUIDS COMPLETED PRN (12:40)
--- NOTE | 2017-09-19 21:32 | Discharge Summary ---
Discharge Summary Date of Service September 19, 2017. Discharge Summary Admission Date: Sep 15, 2017 at 09:07 Discharge Date: Sep 15, 2017 Discharge Disposition: Home Principal Diagnosis: ovarian mass, endometriosis Procedures: see operative note Medication Reconciliation New Medications: Oxycodone/Acetaminophen 5MG/325MG (Percocet 5MG/325MG) Tab 1-2 TABLETS PO Q6 PRN for Pain for 7 Days, #20 TAB Continued Medications: Ibuprofen (Advil) 200 Mg Tab 400 MG PO PRN, TAB Levothyroxine Sodium (Levothyroxine Sodium) 50 Mcg Tab 1 TAB PO QAM for 90 Days, #90 TAB 3 Refills Metformin Hcl (Glucophage) 500 Mg Tab 500 MG PO QPM, TAB Multivit/Min/Iron/Fol Ac/Pren ( Vitamin) Tab 1 TAB PO QPM, TAB [Active B12] () 1 TAB PO QPM Hospital Course Observed after surgery and discharged home same day. Total Time Spent: Less than 30 minutes This includes examination of the patient, discharge planning, medication reconciliation, and communication with other providers. Discharge Instructions Please refer to the electronic Patient Visit Report (Discharge Instructions) for additional information. Follow-Up 2, 6 w
== END 2017-09-15 12:40 | disposition home or self-care (01) ==
LOC: C.ACU 05:42 → C.MS4N 09:07 → ENRESERV 10:04
PROVIDERS: ADMIT Obstetrics & Gynecology; ATTEND Obstetrics & Gynecology
DX: N83.299 Other ovarian cyst, unspecified side (principal); N80.3 Endometriosis of pelvic peritoneum; K21.9 Gastro-esophageal reflux disease without esophagitis; F41.9 Anxiety disorder, unspecified; E03.9 Hypothyroidism, unspecified; E72.12 Methylenetetrahydrofolate reductase deficiency; I73.00 Raynaud's syndrome without gangrene; Z81.8 Family history of other mental and behavioral disorders; Z82.49 Family history of ischemic heart disease and other diseases of the circulatory system; Z83.79 Family history of other diseases of the digestive system; Z84.1 Family history of disorders of kidney and ureter; Z82.0 Family history of epilepsy and other diseases of the nervous system; Z80.0 Family history of malignant neoplasm of digestive organs; Z79.899 Other long term (current) drug therapy; Z79.84 Long term (current) use of oral hypoglycemic drugs
CPT/HCPCS: 58559; 58720; S2900

== ENCOUNTER → 2017-12-19 | Outpatient (CLI) | payer OTHER | END | disposition home or self-care (01) | LOC: C.LAB1850 08:03 | PROVIDERS: ATTEND Obstetrics & Gynecology | DX: O02.1 Missed abortion (principal); O08.89 Other complications following an ectopic and molar pregnancy ==

== ENCOUNTER → 2017-12-24 | Outpatient (CLI) | payer OTHER | END | disposition home or self-care (01) | LOC: C.LAB1850 08:19 | PROVIDERS: ATTEND Obstetrics & Gynecology | DX: O02.1 Missed abortion (principal) ==

== ENCOUNTER 2019-05-31 07:35 | Inpatient (IN) ==
[2019-05-31] MEDS ORDERED: DINOPROSTONE 10 MG INSERT PV ONE (09:14)
[2019-05-31] MEDS ORDERED: OXYTOCIN 30 UNITS/500 ML BAG IV PRN (09:14)
[2019-05-31] MEDS ORDERED: PENICILLIN G POTASSIUM 6 MU in DEXTROSE 5% 250 ML IV STA (09:14)
[2019-05-31 09:37] LABS: Hematocrit (blood only) 38.2 % (37-47); Hemoglobin 13.2 g/dL (12.0-16.0); Mean Corpuscular Hemoglobin 31.4 pg (25-34); Mean Platelet Volume 9.8 fL (7.4-10.4); Platelet Count 217 K/uL (130-400); RDW Coefficient of Variation 12.8 % (11.5-14.5); RDW Standard Deviation 42.4 fL (36.4-46.3); White Blood Count 8.11 K/uL (4.8-10.8)
[2019-05-31 09:39] LABS: Mean Corpuscular Hgb Conc 34.6 g/dL (32-36)
--- NOTE | 2019-05-31 09:39 | Obstetrical Progress Note ---
Date of Service May 31, 2019 Physical Exam Physical Exam: Admit Note 34 F P0040 at 40.4 weeks admitted for post dates IOL. She has polyhydramnios noted in third trimester, GBS and is Rh negative. FHT Cat 1. Cervix is closed/25/-3/vertex/intact/posterior/firm. EFW 8 lbs. Cervidil 10 mg placed vaginally to ripen cervix. Will start antibiotics when in labor. Results & Data Vital Signs (Past 12 Hours) Vital Signs Temp Pulse Resp BP 05/31/19 07:47 36.6 C 20 05/31/19 07:45 80 129/83
[2019-05-31] MEDS: LACTATED RINGER'S 1,000 ML IV PRN ×2 (12:40→13:53)
[2019-05-31] MEDS ORDERED: TERBUTALINE SULFATE 1 MG/ML VIAL SQ ONE (13:57)
[2019-05-31] MEDS ORDERED: TERBUTALINE SULFATE 1 MG/ML VIAL ONE (14:00)
[2019-05-31] MEDS: PENICILLIN G POTASSIUM 3 MU in DEXTROSE 5% 100 ML IV PRN ×2 (18:00→23:29)
--- NOTE | 2019-05-31 19:39 | Obstetrical Progress Note ---
Date of Service May 31, 2019 Physical Exam Genitourinary: OB Exam Abdomen: + regular contractions Manual OB Exam: + cervical dilation fingertip, + cervical effacement 50% and + station high OB Exam Monitor Tracing: + external FHT monitor used and + external uterine monitor used alphonso every 2-3 minutes encouraged to ambulate Results & Data Vital Signs (Past 12 Hours) Vital Signs Temp Pulse Resp BP Pulse Ox 05/31/19 19:11 78 130/73 05/31/19 18:01 82 125/72 05/31/19 15:46 96 H 98 05/31/19 15:41 98 H 98 05/31/19 15:36 92 H 97 05/31/19 15:31 107 H 97 05/31/19 15:26 103 H 97 05/31/19 15:21 103 H 97 05/31/19 15:16 100 H 98 05/31/19 15:11 100 H 99 05/31/19 15:06 100 H 98 05/31/19 15:01 105 H 99 05/31/19 14:56 112 H 97 05/31/19 14:51 103 H 99 05/31/19 14:46 113 H 100 05/31/19 14:41 109 H 100 05/31/19 14:36 111 H 100 05/31/19 14:35 106 H 86 L 05/31/19 14:31 105 H 99 05/31/19 14:26 114 H 100 05/31/19 14:22 36.7 C 101 H 138/74 05/31/19 14:21 114 H 100 05/31/19 14:16 103 H 99 05/31/19 14:11 89 100 05/31/19 14:06 82 99 05/31/19 10:44 93 H 137/87 05/31/19 10:43 36.3 C L 16 05/31/19 07:47 36.6 C 20 05/31/19 07:45 80 129/83
[2019-06-01] MEDS: PENICILLIN G POTASSIUM 3 MU in DEXTROSE 5% 100 ML IV PRN (04:00)
[2019-06-01] MEDS: LEVOTHYROXINE SODIUM 75 MCG TABLET PO SCH (06:25)
--- NOTE | 2019-06-01 11:24 | Obstetrical Progress Note ---
Date of Service June 01, 2019 Subjective Induction day #2 post date and poly received Cervidil yesterday VE; ft/post FHR; CAT1 discussed rice bulb . pt agreed will insert rice bulb with 30 cc Results & Data Vital Signs (Past 12 Hours) Vital Signs Temp Pulse Resp BP 06/01/19 07:20 36.9 C 68 20 139/72 06/01/19 04:37 74 128/70 06/01/19 04:34 37.0 C 18
--- NOTE | 2019-06-01 12:01 | Obstetrical Progress Note ---
Date of Service June 01, 2019 Subjective Arguello bulb placed w/o compication FHR; CAT1 ctx, minimal 'VE; ft/thick/ no effacement Results & Data Vital Signs (Past 12 Hours) Vital Signs Temp Pulse Resp BP 06/01/19 07:20 36.9 C 68 20 139/72 06/01/19 04:37 74 128/70 06/01/19 04:34 37.0 C 18
[2019-06-01] MEDS ORDERED: OXYTOCIN 30 UNITS/500 ML BAG IV SCH (12:15)
[2019-06-01] MEDS: LACTATED RINGER'S 1,000 ML IV PRN ×2 (12:21→19:32)
[2019-06-01] MEDS: BUTORPHANOL TARTRATE 1 MG/ML VIAL IV PRN ×2 (16:13→23:12)
[2019-06-02] MEDS: LACTATED RINGER'S 1,000 ML IV PRN ×3 (03:28→18:35)
[2019-06-02] MEDS ORDERED: OXYTOCIN 30 UNITS/500 ML BAG IV PRN ×2 (05:31→21:09)
[2019-06-02] MEDS: LEVOTHYROXINE SODIUM 75 MCG TABLET PO SCH (06:32)
[2019-06-02] MEDS: PENICILLIN G POTASSIUM 3 MU in DEXTROSE 5% 100 ML IV PRN ×4 (07:40→20:06)
[2019-06-02] MEDS ORDERED: fentaNYL citrate 100 MCG/2 ML VIAL ONE ×2 (09:16→15:28)
[2019-06-02] MEDS ORDERED: ePHEDrine sulfate 50 MG/ML AMP ONE (09:16)
[2019-06-02] MEDS ORDERED: BUPIVACAINE 0.25% 30 ML VIAL ONE ×2 (09:16→15:28)
[2019-06-02] MEDS ORDERED: fentaNYL 2MCG/ML ROPIV 1.25MG/ML 100 ML BAG EPI ONE (09:17)
--- NOTE | 2019-06-02 09:51 | Anesthesiology Consultation ---
Date of Service June 02, 2019 Assessment & Plan Chart Review Chart Review: Patient NOT seen in Pre Admission Testing and Acceptable Risk for Labor Epidural Consults Requested none ASA ASA2 Proposed Anesthesia Anesthesia Type: Labor Epidural Risk / Benefits Reviewed With: PT / POA / Parent / Guardian, Accepts Plan and Informed Consent Obtained History Height/Weight Height: 5 ft Weight: 92.079 kg Allergies Allergy/AdvReac Type Severity Reaction Status Date / Time banana Allergy Intermediate GI SYMPTOMS Verified 05/31/19 07:47 casein Allergy Intermediate GI SYMPTOMS Verified 05/31/19 07:47 gluten Allergy Intermediate GI SYMPTOMS Verified 05/31/19 07:47 soy Allergy Intermediate GI SYMPTOMS Verified 05/31/19 07:47 walnut Allergy Intermediate GI SYMPTOMS Verified 05/31/19 07:47 morphine Allergy Mild RASH,HEAVINESS Verified 05/31/19 07:47 IN CHEST,NAUSEA Medications Home Medications Medication Instructions Recorded Confirmed Last Taken omega-3s 360 nm-qvj-zfb-fish oil 1,000 cap PO DAILY 12/25/18 05/31/19 05/30/19 17:00 1,200 mg-D3 1,000 unit capsule vits no.124-ferrous fum 1 tab PO DAILY 12/25/18 05/31/19 05/30/19 17:00 27 mg iron-folic acid 800 mcg tablet levothyroxine 75 mcg tablet 75 mcg PO DAILY #30 tab 02/10/19 05/31/19 05/31/19 02:00 cholecalciferol (vitamin D3) 1,000 unit PO DAILY 05/29/19 05/31/19 05/30/19 17:00 [Vitamin D3] Active Medications Generic Name Dose Route Start Last Admin Trade Name Jeysonq PRN Reason Stop Dose Admin Butorphanol Tartrate 1 mg 05/31/19 19:41 06/01/19 23:12 Stadol IV 06/30/19 19:40 1 mg Q2R PRN Administration Pain Penicillin G Potassium 3 mu/ 106 mls @ 100 mls/hr 05/31/19 09:14 06/02/19 07:40 Dextrose IV 06/10/19 09:13 100 mls/hr Q4H PRN Administration Give until delivery Oxytocin 30 units in 500 mls @ 6 mls/hr 06/02/19 05:31 06/02/19 07:42 Pitocin IV 06/04/19 05:30 0.6 units/hr .Q24H PRN 10 mls/hr Labor Induction/Augmentation Administration Protocol 0.36 UNITS/HR Levothyroxine Sodium 75 mcg 06/01/19 06:30 06/02/19 06:32 Synthroid PO 07/01/19 06:29 75 mcg DAILYBB PAULA Administration NPO Date Last Intake of Fluids: 06/02/19 Time Last Intake of Fluids: 09:46 Date Last Intake of Solids: 06/01/19 Time Last Intake of Solids: 08:00 Past Medical History Medical History Endometriosis History of miscarriage History of molar Methylenetetrahydrofolate reductase (MTHFR) deficiency PCOS (polycystic ovarian syndrome) Thyroid dysfunction Exercise / Class Metabolic Activity II 4-5 Yardwork/Stairs/Walk up hill Negative for chest pain or shortness of breath. Past Surgical History Surgical History H/O dilation and curettage [place] teeth removed Past Anesthesia History No Hx of Anesthesia Complications History of PONV No Hx of PONV Social History Smoking Status: Never smoker Hx Alcohol Use: No Hx Substance Use: No substance use type: does not use Review of Systems Patient denies history of abnormal bleeding or bleeding disorder. Patient denies active use of anticoagulants other than low dose aspirin. Patient denies numbness, tingling or weakness in lower extremities. History of Raynauds Physical Exam Vital Signs Last Vital Signs Temp 36.6 C 06/02/19 07:15 Pulse 69 06/02/19 10:33 Resp 20 06/02/19 07:15 BP 130/62 06/02/19 10:32 Pulse Ox 100 06/02/19 10:33 Constitutional not obese (gravid uterus) ENMT Mouth: no TMJ abnormality and oral opening not small Thyromental Distance: > or= 3.5 Finger Breadths Mallampati Class: I Neck normal visual inspection; neck extension not limited Respiratory normal respiratory effort Auscultation: lungs clear to auscultation bilaterally Cardiovascular Rate/Rhythm: regular rate and regular rhythm Heart Sounds: no murmur Neurologic moves all extremities Motor/Sensory: no sensory deficit Psychiatric Orientation: alert and oriented x 3 Testing Laboratory Results 05/31/19 09:28
[2019-06-02] MEDS ORDERED: fentaNYL 2MCG/ML ROPIV 1.25MG/ML 100 ML BAG EPI PRN (10:36)
[2019-06-02] MEDS ORDERED: ONDANSETRON INJ 2 MG/ML 2 ML VIAL IV PRN (10:36)
[2019-06-02] MEDS ORDERED: NALBUPHINE HCL INJ 10 MG/ML AMP IV PRN (10:36)
[2019-06-02] MEDS ORDERED: DiphenhydrAMINE HCL 50 MG/ML VIAL IV PRN (10:36)
[2019-06-02] MEDS ORDERED: NALOXONE HCL 0.4 MG/1 ML VIAL/CARP IV PRN (10:36)
[2019-06-02] MEDS ORDERED: ePHEDrine sulfate 50 MG/ML AMP IV PRN (10:36)
[2019-06-02] MEDS ORDERED: NALOXONE HCL 1 MG in SODIUM CHLORIDE 0.9% 1000ML 1,000 ML IV PRN (10:36)
[2019-06-02] MEDS ORDERED: METHYLERGONOVINE MALEATE 0.2 MG/ML AMP ONE (20:48)
[2019-06-02] MEDS ORDERED: METHYLERGONOVINE MALEATE 0.2 MG/ML AMP IM ONE (21:09)
[2019-06-02] MEDS ORDERED: ACETAMINOPHEN 325 MG TAB PO PRN (21:09)
[2019-06-02] MEDS ORDERED: bisacodyL 10 MG SUPP PR PRN (21:09)
[2019-06-02] MEDS ORDERED: BENZOCAINE 20% AER SPR 82.5 GM CAN EXT PRN (21:09)
[2019-06-02] MEDS ORDERED: ACETAMINOPHEN W/CODEINE #3 1 TAB PO PRN (21:09)
[2019-06-02] MEDS ORDERED: OXYCODONE/ACETAMINOPHEN 5mg/325mg TAB PO PRN (21:09)
[2019-06-02] MEDS ORDERED: SUPERCREAM 0.870% 15 GM JAR EXT PRN (21:09)
[2019-06-02] MEDS ORDERED: HYDROCORTISONE ACETATE 25 MG SUPP PR PRN (21:09)
[2019-06-02] MEDS ORDERED: DIPHTHERIA/TETANUS/PERTUSSIS 0.5 ML SYR/VIAL IM ONE (21:09)
--- NOTE | 2019-06-02 21:14 | Anesthesia Procedure Note ---
Date of Service June 02, 2019 Anesthesia Post Epidural Note Vital Signs Vital Signs: Temp Pulse Resp BP Pulse Ox 36.8 C 86 18 124/71 100 06/02/19 17:00 06/02/19 21:10 06/02/19 15:43 06/02/19 21:10 06/02/19 21:08 Pain Intensity Bilateral Lower Abdomen: Pain Intensity: 3 Notes Mental Status: alert / awake / arousable and participated in evaluation Nausea / Vomiting: adequately controlled Pain: adequately controlled Airway Patency, RR, SpO2: stable & adequate BP & HR: stable & adequate Hydration State: stable & adequate Neuraxial Anesthesia: was administered and sensory block is resolving Anesthetic Complications: no major complications apparent and Pt Satisfied with anesthetic care Epidural: Removed without complications and With tip intact
[2019-06-03] MEDS: IBUPROFEN 600 MG TAB PO PRN ×3 (00:01→17:07)
--- NOTE | 2019-06-03 05:05 | Operative Report ---
DATE OF OPERATION: 06/02/2019 DELIVERY NOTE Mrs. Mcneal was 41 weeks gestation. She was brought in for induction of labor, started with a Cervidil tape. She is beta strep positive. She was given multiple doses of penicillin prior to delivery. Went from a Cervidil tape, then membranes were ruptured. She went to IV Pitocin. On IV Pitocin, she dilated up steadily and did have trouble with some anterior lip which had to be pushed back. Head came right down. She delivered a live infant via direct occiput anterior position over an intact perineum. Infant was suctioned through the mouth and the nose. Shoulders were delivered without difficulty. There was a cord on the patient's right side that was parallel to the body and was ahead of the shoulder. The infant breathed and cried spontaneously.. did well. Cord blood was taken. With IV Pitocin running, the placenta was removed intact. Inspection of the perineum revealed a second-degree laceration down the rectal sphincter capsule. We identified the extent of the vaginal tear, anchored a 2-0 Vicryl above the defect and then did a running approximation out and to beyond the hymenal ring. We then did a horizontal suture between the vagina and rectum, which brought the septum together. Then we worked our way out. We did a suture that bolstered the rectal sphincter. We did 2 sutures that did that, although the sphincter was intact. Then we did a deep suture to approximate the bulbocavernosus muscle and a separate deep suture to approximate the perineal body. Following this, we did a running subcuticular suture to approximate the perineal skin edges. Then I did an exam. There was no hematoma formation vaginally. Rectal examination revealed no stitches through the rectum. Estimated blood loss was 300 mL. Placenta was sent for exam because meconium was present at the time of delivery and the Apgars were deferred to the nurses. I attest to the content of the Intraoperative Record and any orders documented therein. Any exceptions are noted below. LEONIE
[2019-06-03] MEDS: LEVOTHYROXINE SODIUM 75 MCG TABLET PO SCH (06:35)
[2019-06-03 07:23] LABS: Hematocrit (blood only) 28.9 % (37-47); Hemoglobin 10.1 g/dL (12.0-16.0); Mean Corpuscular Hemoglobin 31.1 pg (25-34); Mean Corpuscular Hgb Conc 34.9 g/dL (32-36); Mean Corpuscular Volume 88.9 fL (80-100); Platelet Count 165 K/uL (130-400); RDW Coefficient of Variation 12.6 % (11.5-14.5); RDW Standard Deviation 40.6 fL (36.4-46.3); Red Blood Count 3.25 M/uL (4.2-5.4); White Blood Count 15.42 K/uL (4.8-10.8)
--- NOTE | 2019-06-03 08:31 | Obstetrical Progress Note ---
Date of Service June 03, 2019 Subjective Patient is seen and examined. She feels well, no complaints. Ambulating without dizziness Voiding without difficulty Tolerating regular diet with out N&V Bleeding is minimal No fever/ chills/ CP/ SOB/ N&V/ Leg pain Breast feeding without problems Vital Signs Temp Pulse Pulse Resp BP BP Pulse Ox 06/03/19 04:50 36.4 C L 84 18 119/72 06/03/19 01:55 36.4 C L 94 H 18 113/70 06/02/19 23:40 96 H 120/72 06/02/19 23:25 82 126/71 06/02/19 23:10 85 146/76 H 06/02/19 22:55 67 146/69 H 06/02/19 22:40 59 L 18 166/79 H 06/02/19 22:25 66 150/70 H 06/02/19 22:10 63 18 143/66 H 06/02/19 21:55 60 18 159/72 H 06/02/19 21:40 66 18 127/60 06/02/19 21:25 72 18 137/56 L 06/02/19 21:10 36.8 C 86 18 124/71 06/02/19 21:08 85 100 06/02/19 21:03 88 100 06/02/19 20:58 86 100 06/02/19 20:53 85 100 06/02/19 20:48 114 H 100 06/02/19 20:43 122 H 100 06/02/19 20:38 96 H 99 06/02/19 20:34 113 H 90 06/02/19 20:33 77 99 Lab Results 05/31/19 06/03/19 Range/Units 09:28 06:43 WBC 8.11 15.42 H (4.8-10.8) K/uL RBC 4.20 3.25 L (4.2-5.4) M/uL Hgb 13.2 10.1 L (12.0-16.0) g/dL Hct 38.2 28.9 L (37-47) % MCV 91.0 88.9 (80-100) fL MCH 31.4 31.1 (25-34) pg MCHC 34.6 34.9 (32-36) g/dL RDW Std Deviation 42.4 40.6 (36.4-46.3) fL RDW Coeff of Mathew 12.8 12.6 (11.5-14.5) % Plt Count 217 165 (130-400) K/uL MPV 9.8 10.0 (7.4-10.4) fL PE: General: Alert, orientedx3, NAD Abd: soft, NT, fundus firm, below Umbilicus Perineum intact, Lochia rubra minimal Ext; NT, no edema AP: 34 yo s/p , ppd# 1 VSS Afebrile doing well Continue routine care All questions were answered D/C home tomorrow Results & Data Vital Signs (Past 12 Hours) Vital Signs Temp Pulse Pulse Resp BP BP Pulse Ox 06/03/19 04:50 36.4 C L 84 18 119/72 06/03/19 01:55 36.4 C L 94 H 18 113/70 06/02/19 23:40 96 H 120/72 06/02/19 23:25 82 126/71 06/02/19 23:10 85 146/76 H 06/02/19 22:55 67 146/69 H 06/02/19 22:40 59 L 18 166/79 H 06/02/19 22:25 66 150/70 H 06/02/19 22:10 63 18 143/66 H 06/02/19 21:55 60 18 159/72 H 06/02/19 21:40 66 18 127/60 06/02/19 21:25 72 18 137/56 L 06/02/19 21:10 36.8 C 86 18 124/71 06/02/19 21:08 85 100 06/02/19 21:03 88 100 06/02/19 20:58 86 100 06/02/19 20:53 85 100 06/02/19 20:48 114 H 100 06/02/19 20:43 122 H 100 06/02/19 20:38 96 H 99 06/02/19 20:34 113 H 90 06/02/19 20:33 77 99
[2019-06-03] MEDS: PRENATAL VITAMIN 1 TAB PO SCH (09:32)
[2019-06-03] MEDS: DOCUSATE SODIUM 100 MG CAP PO SCH (09:32)
[2019-06-03] MEDS: FERROUS SULFATE 325 MG TAB PO SCH (09:32)
[2019-06-03] MEDS ORDERED: bisacodyL 5 MG TABEC PO SCH (20:00)
[2019-06-04] MEDS: DOCUSATE SODIUM 100 MG CAP PO SCH ×2 (00:27→08:17)
[2019-06-04] MEDS: IBUPROFEN 600 MG TAB PO PRN ×3 (00:27→15:56)
[2019-06-04] MEDS: LEVOTHYROXINE SODIUM 75 MCG TABLET PO SCH (06:27)
[2019-06-04 07:13] LABS: Hematocrit (blood only) 24.6 % (37-47); Hemoglobin 8.4 g/dL (12.0-16.0)
[2019-06-04] MEDS: FERROUS SULFATE 325 MG TAB PO SCH (08:17)
[2019-06-04] MEDS: PRENATAL VITAMIN 1 TAB PO SCH (08:17)
--- NOTE | 2019-06-04 10:09 | Obstetrical Progress Note ---
Date of Service June 04, 2019 Assessment & Plan (1) normal course: PPD #2 pt doing well disch home with instrcutions Subjective Ambulation: ambulating normally Voiding: no voiding problems Passing Gas:: Yes Diet Tolerance:: regular diet Lochia:: Small Feeding Type:: breast feeding Review of Systems All systems reviewed & are unremarkable except as noted in HPI & below Physical Exam Constitutional WD/WN, vitals as above well developed and well nourished Eyes PERRL, conjunctivae normal, anicteric sclerae Neck trachea midline, no thyromegaly Respiratory normal respiratory effort, lungs clear to auscultation Auscultation: no crackles, no rales and no wheezes Cardiovascular RRR, no murmur, no edema Gastrointestinal (Abdomen) normal bowel sounds, soft, nontender, no hepatosplenomegaly Uterus is below umbilicus Musculoskeletal no cyanosis or clubbing, extremities motor strength 5/5 Skin no rashes, warm and dry Neurologic patellar DTR's 2+ bilat, sensation intact Psychiatric A+Ox3, euthymic affect Genitourinary normal external appearance Results & Data Vital Signs (Past 12 Hours) Vital Signs Temp Pulse Resp BP 06/04/19 00:25 36.4 C L 79 18 115/77
== END 2019-06-04 19:15 | disposition home or self-care (01) | DRG 807 ==
LOC: 4S1 07:35 → 4S2 06-03 01:44